=== PATIENT | male | born 1935 | race Caucasian/White ===

== ENCOUNTER 2018-10-01 16:11 | Inpatient (IN) ==
[2018-10-01] MEDS ORDERED: TAMIFLU PO ONE (16:39)
[2018-10-01] MEDS ORDERED: ROCEPHIN 1 GM in NS 50 ML IV ONE (16:39)
[2018-10-01] MEDS ORDERED: NS 1,000 ML IV ONE (16:39)
[2018-10-01] MEDS ORDERED: TYLENOL PO ONE (16:39)
[2018-10-01] MEDS ORDERED: ZITHROMAX 500 MG/NS 500 MG/250 ML IVPB IV ONE (16:39)
[2018-10-01] MEDS ORDERED: DUONEB (A & A) INH ONE (16:40)
[2018-10-01 17:10] LABS: BASO# 0.01 X1000 (0.0-0.2); BASO% 0.1 % (0.0-0.8); HEMATOCRIT 40.8 % (42.0-52.0); HEMOGLOBIN 13.2 g/dL (14.0-18.0); IMM GRAN# 0.02 X1000 (0.0-0.04); IMM GRAN% 0.2 % (0.0-0.5); LYMPH% 4.8 % (20.5-51.1); MCH 31.1 PG (27-31); MCHC 32.4 g/dL (33-37); MCV 96.2 FL (81-99); MONO# 0.84 X1000 (0.11-0.59); MONO% 8.1 % (1.7-9.3); MPV 9.9 FL (7.4-10.4); NEUT# 9.04 X1000 (1.4-6.5); NEUT% 86.8 % (42.2-75.2); PLT 111 X1000 (130-400); RBC 4.24 XMIL (4.7-6.1); RDW 12.3 % (11.5-14.5); WBC 10.41 X1000 (4.8-10.8)
[2018-10-01 17:12] LABS: ALLEN TEST YES; BE -2.1 mmoll (-3.0-3.0); BLOOD TYPE ARTERIAL; HCO3-(ACT) 23.2 mmoll (20.0-26.0); METHB 0.8 % (0.0-1.5); MODALITY CANNULA; O2(CT) 17.7 mL/dL (15.0-23.0); O2HB 94.1 % (95.0-99.0); PCO2(98.6) 29 mmHg (35-45); PO2(98.6) 70 mmHg (60-100); SAMPLE BLOOD; SAO2 96.3 % (95.0-100.0); THB 13.4 g/dL (11.5-17.4); pH(98.6) 7.46 (7.35-7.45)
[2018-10-01 17:13] LABS: INR 1.04; PROTIME 14.5 Seconds (11.0-16.0)
--- NOTE | 2018-10-01 17:22 | Diag Imaging Result Doc PS360 ---
CHEST-PORTABLE - 10/01/2018 INDICATION: flu, diff breathing COMPARISON: 09/14/2016 FINDINGS: There is faint left lower lobe infiltrates. Heart size and pulmonary vascularity is normal. No pneumothorax or pleural effusion. IMPRESSION: Left lower lobe infiltrate. Electronically signed by Eliel Martin 10/01/2018 5:20 PM
[2018-10-01 17:31] LABS: ALB/GLOB RATIO 1.4; ALBUMIN 4.2 g/dL (3.5-5.0); CALCIUM 9.1 mg/dL (8.8-10.2); CREATININE 1.2 mg/dL (0.7-1.2); MAGNESIUM 1.7 mg/dL (1.5-2.7); POTASSIUM 3.7 mmol/L (3.5-5.1); TOTAL BILIRUBIN 0.79 mg/dL (0.20-1.00); TOTAL PROTEIN 7.1 g/dL (6.3-8.3)
[2018-10-01] MEDS ORDERED: MORPHINE IV ONE (17:42)
[2018-10-01] MEDS ORDERED: ZOFRAN IV ONE (17:42)
--- NOTE | 2018-10-01 17:45 | PROVIDER DOCUMENTATION ---
This chart was entered by Tarsha Massey Scribe, acting as scribe for Jimbo Hogan MD. HPI-Respiratory General - General Chief Complaint: Shortness of Breath Stated Complaint: FEVER Time Seen by Provider: 10/01/18 16:53 Allergies/Adverse Reactions: Patient Allergies Allergy/AdvReac Type Severity Reaction Status Date / Time No Known Allergies Allergy Verified 10/18/14 08:52 Home Medications: Home Medication List Medication Instructions Recorded Confirmed Last Taken Type Hydroxychloroquine [Plaquenil] 200 mg PO DAILY 10/18/14 03/08/16 03/07/16 History Tramadol HCl 50 mg PO TID 06/02/15 03/08/16 07/30/15 History Omeprazole 20 mg PO QAM 07/31/15 03/08/16 03/07/16 History Gabapentin 300 mg PO TID 01/08/16 03/08/16 03/07/16 History Losartan [Cozaar] 50 mg PO DAILY #30 tablet 01/08/16 03/08/16 03/07/16 Rx Spironolact/Hydrochlorothiazid 1 tab PO DAILY 01/08/16 03/08/16 03/07/16 History [Spironolactone-Hctz 25-25 Tab] Escitalopram [Lexapro] 10 mg PO DAILY #30 tablet 03/08/16 Unknown Rx Methylprednisolone [Medrol Dosepak] 4 mg PO DIRECTED #1 package 09/14/16 Unknown Rx - History of Present Illness-Resp Nature of Presenting Problem: Patient is a 83 year old male who presents to the ED with shortness of breath. Patient states shortness of breath has been present for 1 week. Patient states sick contact to who had flu. Patient's states patient was diagnosed with flu prior to arrival at [facility]. Patient does not report nausea or vomiting. Quality of Pain: reports: tightness Severity in ED: reports: mild Onset/Duration: reports: 1 week ago Timing: reports: still present, getting worse Cough Quality/Degree: reports: no cough Current Respiratory Medication Therapy: Initiated see nurses note Modifying Factors: improves with: nothing Associated Symptoms: reports: shortness of breath Similar Symptoms Previously?: Yes Recently seen or treated by another doctor?: Yes Review of Systems - Adult - REVIEW OF SYSTEMS - ADULT Constitutional: reports: no symptoms reported Eyes: reports: no symptoms reported Ears, Nose, Mouth & Throat: reports: no symptoms reported Cardiovascular: reports: no symptoms reported Respiratory: reports: shortness of breath. denies: cough, wheezing Gastrointestinal: reports: no symptoms reported Genitourinary: reports: no symptoms reported Musculoskeletal: reports: no symptoms reported Integumentary: reports: no symptoms reported Neurological: reports: no symptoms reported Psychiatric: reports: no symptoms reported Endocrine: reports: no symptoms reported Hematologic/Lymphatic: reports: no symptoms reported Allergic/Immunologic: reports: no symptoms reported All Other Systems: Reviewed and Negative Past History - Adult - PAST MEDICAL HISTORY-ADULT Review of Records: reports: Nursing Assessment Review, Medications Reviewed, Social history reviewed & non-contributory. Major Childhood Illnesses: reports: denies history Cardiovascular: reports: HTN, hyperlipidemia, other (MVP) Respiratory: reports: denies history Gastrointestinal: reports: GERD Obstetrical/Gynecological: reports: denies history Genitourinary: reports: denies history Musculoskeletal: reports: chronic pain, intervertebral disc disease, orthopedic injury Neurological: reports: other (Saritha) Endocrine/Immune: reports: lupus Other Conditions: reports: denies history - PRIOR SURGERIES/PROCEDURES Surgical/Procedure History: reports: joint replacement (total knee), back/neck (back sx x3; neck sx x 1) - IMMUNIZATION STATUS Childhood Immunizations: See Nurse Assessment Flu Vaccine: See Nurse Assessment - FAMILY HISTORY Family History: reviewed, not pertinent - SOCIAL HISTORY Smoking: denies Substance Use: denies Living Situation: family Physical Exam-General - PHYSICAL EXAM-ADULT Initial Vital Signs Reviewed: Yes - CONSTITUTIONAL General Appearance: alert, no apparent distress - HEAD, EARS, NOSE, MOUTH & THROAT HENMT: hearing deficit - RESPIRATORY Respiratory: chest non-tender, rhonchi (bilateral), wheezing (bilateral) - CARDIOVASCULAR Cardiovascular: tachycardia - GASTROINTESTINAL (ABDOMEN) Abdominal Exam: normal bowel sounds, non tender, soft - MUSCULOSKELETAL Extremity: non-tender, normal inspection - SKIN Integumentary: normal color, normal turgor, warm/dry - NEUROLOGIC Neurologic: grossly normal - PSYCHIATRIC Psych/Mental Status: normal mood/affect, oriented x 3 Progress - PLAN OF CARE/RESULTS Progress/Plan/Lab Results: Vital Signs - 8 hr 10/01/18 16:45 10/01/18 17:11 Temperature 101 F H Pulse Rate 95 H 95 H Respiratory Rate 20 18 Blood Pressure 128/52 O2 Sat by Pulse Oximetry 92 L Laboratory Results - last 24 hr 10/01/18 10/01/18 10/01/18 16:35 16:35 16:35 WBC 10.41 RBC 4.24 L Hgb 13.2 L Hct 40.8 L MCV 96.2 MCH 31.1 H MCHC 32.4 L RDW Std Deviation 12.3 Plt Count 111 L MPV 9.9 Immature Gran % (Auto) 0.2 Neut % (Auto) 86.8 H Lymph % (Auto) 4.8 L Archuleta % (Auto) 8.1 Eos % (Auto) 0.0 Baso % (Auto) 0.1 Immature Gran # (Auto) 0.02 Neut # (Auto) 9.04 H Lymph # (Auto) 0.50 L Archuleta # (Auto) 0.84 H Eos # (Auto) 0.00 Baso # (Auto) 0.01 PT INR Specimen Type Sample Site pH pCO2 pO2 HCO3 Base Excess Oxyhemoglobin ABG O2 Sat (Calculated) ABG O2 Saturation ABG Carboxyhemoglobin ABG Methemoglobin Oumar Test A-a O2 Difference Total Hemoglobin Lactate Liter Flow Blood Gas Modality FiO2 % Sodium 133 L Potassium 3.7 Chloride 96 L Carbon Dioxide 20 L Anion Gap 17 BUN 22 Creatinine 1.2 Estimated GFR/1.73 m2 58 BUN/Creatinine Ratio 18 Glucose 137 H Calculated Osmolality 272 Calcium 9.1 Magnesium 1.7 Total Bilirubin 0.79 AST 20 ALT 13 Alkaline Phosphatase 98 Troponin T Total Protein 7.1 Albumin 4.2 Globulin 2.9 Albumin/Globulin Ratio 1.4 Plasma Lactate 1.3 10/01/18 10/01/18 10/01/18 16:35 16:35 17:01 WBC RBC Hgb Hct MCV MCH MCHC RDW Std Deviation Plt Count MPV Immature Gran % (Auto) Neut % (Auto) Lymph % (Auto) Archuleta % (Auto) Eos % (Auto) Baso % (Auto) Immature Gran # (Auto) Neut # (Auto) Lymph # (Auto) Archuleta # (Auto) Eos # (Auto) Baso # (Auto) PT 14.5 INR 1.04 Specimen Type ARTERIAL Sample Site R RADIAL pH 7.46 H pCO2 29 L pO2 70 HCO3 23.2 Base Excess -2.1 Oxyhemoglobin 94.1 L ABG O2 Sat (Calculated) 17.7 ABG O2 Saturation 96.3 ABG Carboxyhemoglobin 1.50 ABG Methemoglobin 0.8 Oumar Test YES A-a O2 Difference 93.0 Total Hemoglobin 13.4 Lactate 0.80 Liter Flow 2.0 Blood Gas Modality CANNULA FiO2 % 28.0 Sodium Potassium Chloride Carbon Dioxide Anion Gap BUN Creatinine Estimated GFR/1.73 m2 BUN/Creatinine Ratio Glucose Calculated Osmolality Calcium Magnesium Total Bilirubin AST ALT Alkaline Phosphatase Troponin T < 0.010 Total Protein Albumin Globulin Albumin/Globulin Ratio Plasma Lactate Orders Category Date Time Status Nursing- Obtain EKG once Care 10/01/18 16:38 Completed Saline Loc NOW Care 10/01/18 16:38 Active CHEST-PORTABLE [RAD] Stat Exams 10/01/18 16:39 Completed ABG [RESP] Routine Lab 10/01/18 17:01 Completed BLOOD CULTURE [BLDCUL] Stat Lab 10/01/18 17:05 Received CBC WITH ELECTRONIC DIFF [HEME] Stat Lab 10/01/18 16:35 Completed COMPREHENSIVE METABOLIC PANEL [CHEM] Stat Lab 10/01/18 16:35 Completed LACTATE, PLASMA [CHEM] Stat Lab 10/01/18 16:35 Completed MAGNESIUM [CHEM] Stat Lab 10/01/18 16:35 Completed PRO B-NATRIURETIC PEPTIDE Stat Lab 10/01/18 16:35 Received PROTIME WITH INR [COAG] Stat Lab 10/01/18 16:35 Completed SPUTUM CULTURE WITH GRAM STAIN [RM] Stat Lab 10/01/18 16:39 Uncollected TROPONIN T Stat Lab 10/01/18 16:35 Completed URINALYSIS W/POSS RFLX CULT [URINALYSIS] Stat Lab 10/01/18 16:39 Uncollected 0.9% Sodium Chloride Inj [Ns] 1,000 ml Med 10/01/18 16:39 Discontinued IV 999 mls/hr Acetaminophen [Tylenol] Med 10/01/18 16:39 Discontinued 1,000 mg PO NOW ONE Albuterol 2.5MG/Ipratrop 0.5MG [Duoneb (A & A)] Med 10/01/18 16:40 Discontinued 3 ml INH NOW ONE Azithromycin 500 mg/Ns [Zithromax 500 mg/Ns] Med 10/01/18 16:39 Discontinued 500 mg in 250 ml IV NOW CefTRIAXONE [Rocephin] 1 gm Med 10/01/18 16:39 Discontinued 0.9% Sodium Chloride Inj [Ns] 50 ml IV NOW Morphine Med 10/01/18 17:42 Once 4 mg IV NOW ONE Ondansetron [Zofran] Med 10/01/18 17:42 Once 4 mg IV NOW ONE Oseltamivir [Tamiflu] Med 10/01/18 16:39 Discontinued 75 mg PO NOW ONE Aerosol Treatments Routine Oth 10/01/18 16:40 Completed Aerosol Treatments Stat Oth 10/01/18 16:40 Completed EKG [EKG] Stat Ther 10/01/18 16:38 Ordered Result Diagrams: 10/01/18 16:35 10/01/18 16:35 - REASSESSMENT Reassessment #2 Time Reassessed: 17:42 Status: improving (patient meets criteria for sepsis, but not severe sepsis. He has CAP and Influenza A. Given IV rocephin/zithromax, po Tamiflu and IV morphine/zofran) - EKG 1 Time of EKG reading by physician:: 16:23 EKG Read and Signed by:: Jimbo Hogan EKG Interpretation (*Must complete 3 of following elements*): Abnormal Rate: 92 Rhythm: sinus rhythm with premature atrial complexes Brainard: left QRS: LVH (with QRS widening and repolarization abnormality.) Comments: cannot rule out septal infarct, age undetermined - XRAY 1 XRAY Study: Chest Impression: See EMR Report (CHEST-PORTABLE - 10/01/2018 INDICATION: flu, diff br eathing COMPARISON: 09/14/2016 FINDINGS: There is faint left lower lobe infiltrates. Heart size and pulmonary vascularity is normal. No pneumothorax or pleural effusion. IMPRESSION: Left lower lobe infiltrate. Electronically signed by Eliel Martin 10/01/2018 5:20 PM 10/01/18 1720 Interpreting Physician: Eliel Martin MD Dictated Date/Time: 10/01/18 1720 cc: Jimbo Hogan MD; Nelia Sandhu MD) - CONSULTS/PCP/HOSPITALIST Notification #1 *Consult/PCP/Hospitalist*: ZEYAD Man Time Discussed: 17:45 (Admit to [facility]) Consult Disposition: Will see in ED Departure - Departure Date of Disposition Decision: 10/01/18 Time of Disposition Decision: 17:43 DIAGNOSIS: Sepsis without acute organ dysfunction Left lower lobe pneumonia Qualifiers: Pneumonia type: due to influenza A virus Qualified Code(s): J11.00 - Influenza due to unidentified influenza virus with unspecified type of pneumonia Disposition: ADMITTED INPATIENT 09 Certified Medical Emergency: Emergent Condition: Fair Referrals and Follow-Ups: Nelia Sandhu MD [Primary Care Provider] - - Critical Care Note This patient required my direct & personal management of CC.: No Attestation - Physician/ YUN Attestation Patient care was provided by Advanced Practice Provider:: No The physician spent face to face time with patient:: Yes Advanced Practice Provider documentation review:: Supervising physician onsite and consulted in the evaluation and care of this patient. The physician did have a face to face encounter with the patient. This chart was documented by the indicated scribe, (Tarsha Massey Scribe) and accurately reflects the services I performed and decisions made by , Jimbo Hogan MD, as attested by the provider's signature.
[2018-10-01] MEDS ORDERED: SODIUM CHLORIDE 0.9% INJ SCH (19:00)
[2018-10-01] MEDS ORDERED: VANCOMYCIN IV PER PHARMACY MISC SCH (19:00)
[2018-10-01] MEDS ORDERED: XOPENEX NEB INH PRN (19:01)
[2018-10-01] MEDS: PROTONIX IV SCH (19:35)
[2018-10-01] MEDS: MAXIPIME 2 GM in NS 100 ML IV SCH (19:35)
[2018-10-01 20:04] LABS: ACETAMINOPHEN 14.2 ug/mL (10-30); SALICYLATES < 3.00 mg/dL (3-10)
[2018-10-01 20:13] LABS: ACETONE SERUM SMALL (NEGATIVE)
[2018-10-01] MEDS ORDERED: VANCOMYCIN 2 GM in NS 500 ML IV ONE (21:00)
[2018-10-01] MEDS: TAMIFLU PO SCH (21:00)
--- NOTE | 2018-10-01 21:00 | Diag Imaging Result Doc PS360 ---
CT HEAD W/O CONTRAST - 10/01/2018 INDICATION: encephalopathy, headache COMPARISON: 07/31/2015 FINDINGS: The ventricles and sulci are normal in size and contour. There is some mild periventricular white matter chronic microvascular disease. No intracranial mass or hemorrhage. The skull is intact. The sinuses, mastoids, and middle ears are clear. IMPRESSION: No acute disease. This exam was performed using automated exposure control, adjustment of mA or kV according to patient size, and/or use of iterative reconstruction technique Electronically signed by Eliel Martin 10/01/2018 8:57 PM
--- NOTE | 2018-10-01 21:10 | Diag Imaging Result Doc PS360 ---
CT THORAX W/O CONTRAST - 10/01/2018 INDICATION: Rule out consolidation left lower lobe COMPARISON: Chest x-ray from earlier FINDINGS: There is significant infiltrate in the left lower lobe along with bronchial wall thickening. This indicates bronchopneumonia. There is some dependent atelectasis in the right lower lobe. Heart and great vessels are normal. No adenopathy. There is probably left renal atrophy. Otherwise upper abdominal images are unremarkable. There are moderate degenerative changes of the spine. No acute or suspicious bony lesion. IMPRESSION: Significant bronchopneumonia in the left lower lobe. This exam was performed using automated exposure control, adjustment of mA or kV according to patient size, and/or use of iterative reconstruction technique Electronically signed by Eliel Martin 10/01/2018 9:08 PM
--- NOTE | 2018-10-01 21:13 | HISTORY AND PHYSICAL ---
PRIMARY CARE PHYSICIAN: Dr. Jorge Bowles. CHIEF COMPLAINT: Weakness, fever, shortness of breath. HISTORY OF PRESENT ILLNESS: Mr. Jeffers is an 83-year-old male with a history of hypertension, lupus, and hyperlipidemia. He presents with 3 days of progressive weakness, fever, chills, malaise, and progressive cough. His was recently in the hospital here and is being treated for the flu. He went to a walk-in clinic today and was tested for the flu and found positive for flu A, and chest x-ray was suggestive of pneumonia, so it was suggested he come to the ER. Here in the ER he had multiple labs and diagnostics done. Interestingly, he has no white count, but he is acidotic with mild hyponatremia, and his chest x-ray is consistent with pneumonia. He does have a fever and is requiring O2, so we will be putting him in the CICU with a low threshold to transfer him to the ICU. PAST MEDICAL HISTORY: 1. Hypertension. 2. Hyperlipidemia. 3. Lupus. 4. Chronic back pain. 5. Question of congestive heart failure. Last echocardiogram done in 2016 shows an EF of 50% with mild concentric LVH. PAST SURGICAL HISTORY: 1. Total knee arthroplasty. 2. Lumbar spine surgery x2. 3. C-spine surgery x1. SOCIAL HISTORY: He quit smoking some time ago. No current tobacco, alcohol or drug use. His is currently at the bedside. She was recently in the hospital and is currently being treated for the flu. FAMILY HISTORY: Noncontributory. REVIEW OF SYSTEMS: A 14-point review of systems was obtained and found to be negative with the exception of the HPI. HOME MEDICATIONS: Yet to be compiled. PHYSICAL EXAMINATION: VITAL SIGNS: Blood pressure is 128/52, heart rate 95, respiratory rate 18, O2 saturation 92% on nasal cannula. Temperature is 101. GENERAL: Ivhvqnkvoyf-fcl-dglnynact 83-year-old male lying in the hospital bed in mild respiratory distress. NEUROLOGIC: He is somewhat disoriented. He has a difficult time answering orientation questions correctly. He does follow commands without any overt focal deficits. HEENT: His head is atraumatic and normocephalic. His pupils are equal, round, and reactive to light. His oral mucosa is dry. NECK: Trachea is midline. There is no JVD. CHEST: Coarse rhonchi bilaterally. CV: Tachycardic. S1 and S2 noted. No appreciable murmurs. GI: Soft, nondistended, nontender. Bowel sounds are hypoactive. EXTREMITIES: Trace edema. Pulses 1+ bilaterally. DIAGNOSTIC DATA: Chest x-ray shows left lower lobe infiltrate, otherwise normal. LABORATORY DATA: WBCs 10.41, hemoglobin 13.2, hematocrit 40.8, platelet count 111. INR 1.04. ABG on nasal cannula shows a pH of 7.46, CO2 of 29, O2 of 70, bicarbonate of 23.2. Oxyhemoglobin 94.1. Sodium 133, potassium 3.7, chloride 96. CO2 is 20, anion gap 17, BUN 22, creatinine 1.2, glucose 137. Calcium 9.1. LFTs normal. Troponin negative. ProBNP 3564. Albumin 4.2. ASSESSMENT/PLAN: 1. Acute hypoxic respiratory failure: Secondary to influenza A and pneumonia. We will increase oxygen as needed. Continue ABGs and serial chest x-rays. Would consider increasing his oxygen to Ventimask. 2. Influenza A with superimposed community-acquired pneumonia: We have increased his antibiotics to cefepime and vancomycin, as his was recently in the hospital, and this was presumably the nidus of infection. Given her recent admission, will cover him for methicillin-resistant Staphylococcus aureus as well. Continue breathing treatments, aggressive pulmonary toilet, daily chest x-rays, and FiO2 as needed. We have also started Tamiflu and will keep him on respiratory isolation. 3. Elevated anion gap, metabolic acidosis: His lactic acid is normal. His blood sugar is 137. Will check acetone, acetaminophen and salicylate levels, but more than likely he is dehydrated and hypoxic, which is resulting in acidosis. 4. Mild hyponatremia: Will continue IV fluids and order urine studies. We are awaiting a urinalysis as well. 5. Questionable history of congestive heart failure. Last ejection fraction in 2016 was 50% with mild mitral regurgitation, mild tricuspid regurgitation, mild tricuspid insufficiency, and borderline concentric left ventricular function hypertrophy. He does not appear in overt heart failure at this time. He does have an elevated proBNP of 3500, so we will check an echocardiogram when he is a bit more stable and trend his cardiac enzymes to make sure an EKG is on the chart. He denies any chest pain at this time. Follow strict inputs and outputs and daily weights. 6. Hypertension, currently stable. Will hold off on any antihypertensives at this time, as he has borderline sepsis, and we want to maintain adequate perfusion. 7. Metabolic encephalopathy: Likely secondary to his underlying infectious processes as well as respiratory failure, but will go ahead and check a head CT, as he is complaining of headache and is encephalopathic. 8. Deep venous thrombosis prophylaxis with sequential compression devices. 9. Further recommendations to follow. Dictated by ZEYAD Lorenzana for Vitaliy Godwin MD cc: ZEYAD Lorenzana MD I agree with most of the components of history, physical, assessment and plan. A separate addendum has been dictated. ROBERTA
--- NOTE | 2018-10-01 22:27 | HISTORY AND PHYSICAL ---
ADDENDUM: This is an addendum to the history and physical dictated by the nurse practitioner. I agree with most components of history, physical, assessment and plan. In brief, Mr. Jeffers is an 83-year-old man with history of hypertension; hyperlipidemia; systemic lupus erythematosus, in remission; chronic pain; GERD. He comes in with complaints of chest pain, difficulty breathing with cough, vomiting and diarrhea of about 1 week duration. Most of his symptoms got worse in the last 48 hours, for which he visited urgent care clinic and was diagnosed with influenza type A according to ER reports, and so he was sent to the emergency room. SUBJECTIVE: At the time of my evaluation, the patient is very drowsy and he wants to sleep; however, he is easily arousable. Most of the history was obtained from the at bedside. The patient does not have any known history of COPD, heart failure, coronary artery disease or peripheral artery disease. PHYSICAL EXAMINATION: VITAL SIGNS: Currently temperature is 101 degrees, pulse of 84 per minute, blood pressure 120/59, saturating 92%. GENERAL: He appears in mild distress because of shortness of breath. HEENT: Oral cavity is dry. LUNGS: Air entry bilaterally equal with decreased air entry in left inframammary region, with some inspiratory crackles. No wheeze or rhonchi. ABDOMEN: Distended, soft, nontender. Active bowel sounds. CARDIOVASCULAR: S1, S2 normal. No murmur, rub or gallop. EXTREMITIES: No lower extremity edema. LABORATORY DATA: Labs suggestive of no leukocytosis, normocytic anemia, thrombocytopenia. Normal coagulation profile. ABG in acceptable range. Hyponatremia, hypochloremia, elevated anion gap metabolic acidosis, what appears to be likely chronic kidney disease or acute kidney injury on chronic kidney disease stage 3. DIAGNOSTIC DATA: Chest x-ray had suggested left lower lobe infiltrate. A CT scan thorax and CT scan head is awaited. ASSESSMENT: 1. Acute hypoxic respiratory failure. 2. Influenza type A. 3. Sepsis due to suspected influenza type A versus left lower lobe bacterial pneumonia. 4. Acute kidney injury versus chronic kidney disease stage 3. 5. Thrombocytopenia. 6. Acute encephalopathy in the form of mild confusion in the setting of sepsis. PLAN: Continue the patient on intravenous antibiotics, intravenous fluids, oseltamivir, albuterol/ipratropium nebulization. I will add back his home medications as tolerated tomorrow. I will also follow up with CT thorax to rule out any acute cerebrovascular events considering his acute encephalopathy, though his exam appears nonfocal. I will admit the patient to [facility] for acute hypoxic respiratory failure and sepsis. His code status is Full Code, as per discussion with the . Plan of care was discussed with the patient and his at bedside. All of their questions have been answered. cc: Vitaliy Godwin MD
[2018-10-01] MEDS: XOPENEX NEB INH SCH (23:30)
[2018-10-02] MEDS: MIRAPEX PO SCH ×2 (00:21→21:40)
[2018-10-02] MEDS: XOPENEX NEB INH SCH ×7 (02:26→23:40)
[2018-10-02 03:53] LABS: URINE SOURCE CLEAN CATCH
[2018-10-02 03:56] LABS: BILIRUBIN URINE NEGATIVE (NEGATIVE); BLOOD URINE NEGATIVE (NEGATIVE); COLOR YELLOW; GLUCOSE URINE NEGATIVE (NEGATIVE); KETONE URINE TRACE mg/dL (NEGATIVE); LEUKOCYTES URINE NEGATIVE (NEGATIVE); NITRITE URINE NEGATIVE (NEGATIVE); PH URINE 5.5; PROTEIN URINE 70 mg/dL (NEGATIVE); SP GRAVITY URINE 1.027; TURBIDITY URINE CLEAR (CLEAR); UROBILINOGEN URINE NORMAL (NORMAL)
[2018-10-02 03:57] LABS: UR EPITHELIAL CELLS <10 /HPF (<10); URINE BACTERIA NEGATIVE /HPF; URINE RBC <10 /HPF (<10); URINE WBC <10 /HPF (<10)
[2018-10-02] MEDS: PRILOSEC PO SCH (06:41)
[2018-10-02] MEDS ORDERED: ZOFRAN IV PRN ×2 (06:55→09:33)
[2018-10-02] MEDS ORDERED: TYLENOL PO PRN (07:08)
[2018-10-02 07:09] LABS: BASO# 0.01 X1000 (0.0-0.2); BASO% 0.1 % (0.0-0.8); HEMATOCRIT 36.8 % (42.0-52.0); HEMOGLOBIN 11.7 g/dL (14.0-18.0); IMM GRAN# 0.02 X1000 (0.0-0.04); IMM GRAN% 0.2 % (0.0-0.5); LYMPH# 1.45 X1000 (1.2-3.4); LYMPH% 10.9 % (20.5-51.1); MCHC 31.8 g/dL (33-37); MCV 97.4 FL (81-99); MONO# 1.16 X1000 (0.11-0.59); MONO% 8.7 % (1.7-9.3); MPV 9.7 FL (7.4-10.4); NEUT# 10.62 X1000 (1.4-6.5); NEUT% 80.1 % (42.2-75.2); PLT 97 X1000 (130-400); RBC 3.78 XMIL (4.7-6.1); RDW 12.6 % (11.5-14.5); WBC 13.26 X1000 (4.8-10.8)
[2018-10-02 07:28] LABS: CALCIUM 8.4 mg/dL (8.8-10.2); CREATININE 1.4 mg/dL (0.7-1.2); MAGNESIUM 1.7 mg/dL (1.5-2.7); POTASSIUM 3.8 mmol/L (3.5-5.1)
[2018-10-02] MEDS: PLAQUENIL PO SCH (09:30)
[2018-10-02] MEDS: MAXIPIME 2 GM in NS 100 ML IV SCH ×2 (09:30→21:40)
[2018-10-02] MEDS: NEURONTIN PO SCH ×3 (09:30→21:40)
[2018-10-02] MEDS: TAMIFLU PO SCH ×2 (09:30→21:40)
--- NOTE | 2018-10-02 11:08 | PROGRESS NOTE ---
DATE: 10/02/2018 INTERVAL HISTORY: Mr. Jeffers was admitted for flu and left lower lobe bronchopneumonia, which was detected on CAT scan. He had an episode of vomiting in the morning time, and he is feeling sick in his stomach. He denies any chest pain. He is feeling a little short of breath. He has some body aches. He has some headache. We discussed he is also making sputum. We discussed about pneumonia, influenza, and waiting for final blood and sputum culture. I answered all of his questions. VITALS: Current temperature of 99.5 degrees, pulse of 77 per minute, respiratory rate of 26 per minute, blood pressure 134/42, saturating 97% on 2 L nasal cannula.General: On physical examination, he appears in mild distress. We discussed about his condition. HEENT: Oral cavity is moist. Lungs: Air entry decreased in left infrascapular region with inspiratory crackles. No wheeze or rhonchi. Otherwise, good air entry bilaterally equal. Cardiovascular: S1, S2 normal. Not tachycardic. No murmur, rub, or gallop. Abdomen: Distended with gas, mild generalized tenderness especially in epigastric region. Active bowel sounds. Extremities: No lower extremity edema. Neurologic: Alert and oriented x3. Nonfocal. He is able to get up from bed and sit without any help. LABS: Suggestive of leukocytosis, normocytic anemia, thrombocytopenia, improving hyponatremia and hypochloremia, reducing anion gap with persistent acidosis, elevated creatinine suggestive of acute kidney injury versus his history of chronic kidney disease stage III. MICROBIOLOGY: Sputum culture, blood cultures are in lab. IMAGING: No new imaging data. ASSESSMENT AND PLAN: 1. Acute hypoxic respiratory failure because of influenza leading to viral pneumonia with or without superimposed bacterial pneumonia affecting left lower lobe. Continue oxygenation to maintain saturation more than 94%. 2. Influenza type A as was diagnosed at outpatient urgent care clinic and emergency department documentation. Continue patient on oseltamivir. 3. Sepsis due to suspected influenza type A versus left lower lobe bacterial pneumonia. Continue patient on intravenous cefepime as he has history of systemic lupus erythematosus and was on hydroxychloroquine to have a broader coverage of gram-negative bacilli. I will stop vancomycin considering his chronic kidney disease and acute kidney injury and chronic kidney disease. I will add methicillin-resistant Staphylococcus aureus coverage in the future if his condition does not improve or sputum grows methicillin-resistant Staphylococcus aureus. 4. Elevated anion gap with low bicarbonate likely in the setting of a degree off of baseline chronic kidney disease. On top of that, his hypochloremia could have contributed to it with a degree of volume depletion. Now, anion gap has closed. He continues to have low bicarbonate, which I will monitor at the moment. No need of bicarbonate supplement. 5. Thrombocytopenia in the setting of viral pneumonia. Continue to monitor. No need of transfusion. 6. Acute encephalopathy in the setting of sepsis. CT scan head was unremarkable. His encephalopathy has now resolved. 7. Others: History of congestive heart failure in 2016 with ejection fraction of 50% and elevated proBNP on admission, history of essential hypertension, aware. I will do further diagnostic as needed. 8. Disposition: Patient remains inside the hospital. Plan of care was discussed with him and his son at bedside. All of their questions have been answered. cc: Vitaliy Godwin MD
[2018-10-02] MEDS: ZYVOX 600 MG/D5W 600 MG/300 ML IVPB IV SCH ×2 (12:57→22:29)
[2018-10-02] MEDS: LOVENOX SUBQ SCH (14:59)
[2018-10-02] MEDS: PROTONIX IV SCH (18:52)
[2018-10-03] MEDS ORDERED: VANCOMYCIN 1,600 MG in NS 250 ML IV SCH (03:00)
[2018-10-03] MEDS: XOPENEX NEB INH SCH ×5 (03:40→19:10)
[2018-10-03] MEDS: PRILOSEC PO SCH (06:28)
[2018-10-03 08:02] LABS: BASO# 0.01 X1000 (0.0-0.2); BASO% 0.2 % (0.0-0.8); EOS# 0.08 X1000 (0.0-0.7); EOS% 1.3 % (0.0-10.0); HEMATOCRIT 34.4 % (42.0-52.0); LYMPH# 0.99 X1000 (1.2-3.4); LYMPH% 16.2 % (20.5-51.1); MCV 96.9 FL (81-99); MONO# 0.62 X1000 (0.11-0.59); MONO% 10.1 % (1.7-9.3); MPV 9.6 FL (7.4-10.4); NEUT# 4.41 X1000 (1.4-6.5); NEUT% 72.2 % (42.2-75.2); PLT 98 X1000 (130-400); RBC 3.55 XMIL (4.7-6.1); RDW 12.5 % (11.5-14.5); WBC 6.11 X1000 (4.8-10.8)
[2018-10-03 08:23] LABS: CALCIUM 8.4 mg/dL (8.8-10.2); CREATININE 1.5 mg/dL (0.7-1.2); POTASSIUM 3.9 mmol/L (3.5-5.1)
[2018-10-03] MEDS: ZYVOX 600 MG/D5W 600 MG/300 ML IVPB IV SCH (09:04)
[2018-10-03] MEDS: MAXIPIME 2 GM in NS 100 ML IV SCH ×2 (09:04→21:41)
[2018-10-03] MEDS: NEURONTIN PO SCH ×3 (09:05→21:42)
[2018-10-03] MEDS: TAMIFLU PO SCH ×2 (09:05→21:42)
[2018-10-03] MEDS: PLAQUENIL PO SCH (09:05)
[2018-10-03] MEDS ORDERED: LMX 5 CREAM TOP PRN (15:30)
--- NOTE | 2018-10-03 16:07 | PROGRESS NOTE ---
DATE: 10/03/2018 INTERVAL HISTORY: No events overnight. Patient did not have any more vomiting episodes. He was able to keep his heart-healthy diet down. The patient complains of a persistent cough with mucus expectoration. He also complains of right lower quadrant abdominal pain which is intermittent, sometimes positional as well. OBJECTIVE: Vital Signs: Currently temperature of 98 degrees, pulse of 65, respiratory rate 18, blood pressure 140/64, saturating 97% on room air. General: He does not appear in any acute distress, except intermittent distress because of right lower quadrant pain. HEENT: Oral cavity is moist. Lungs: Air entry bilaterally equal. No wheeze, rhonchi, or crackles. He has occasional cough. Cardiovascular: S1, S2 normal. Not tachycardic. No murmur, rub, or gallop. Abdomen: Distended with gas. Right lower quadrant tenderness intermittently without any guarding or rigidity. Active bowel sounds. Extremities: Mild lower extremity edema bilaterally, more on the left than on the right. Neurologic: He is alert, oriented x3. He is able to get up from the bathroom, go to the bathroom using nasal cannula oxygen. DIAGNOSTIC STUDIES: Suggestive of resolution of leukocytosis, stable hemoglobin, hematocrit, and platelet count which is 98,000, and mild thrombocytopenia. Normal electrolytes except acute kidney injury on what appears chronic kidney disease stage 3. His urine Legionella and streptococcal antigen are in the lab. Sputum culture has not resulted final yet. One of the blood cultures was growing coagulase-negative Staphylococcus. ASSESSMENT AND PLAN: 1. Acute hypoxic respiratory failure because of influenza type A with superimposed suspected bacterial pneumonia affecting left lower lobe. Continue oxygenation to maintain saturation more than 94%. We will try to wean down oxygen as tolerated. 2. Influenza type A, diagnosed at outpatient urgent care clinic as per emergency room documentation. Continue oseltamivir use. 3. Sepsis due to suspected influenza type A versus left lower lobe bacterial pneumonia. Follow up urine streptococcal and Legionella antigen. Continue intravenous cefepime. Only 1 of the 2 blood cultures has coagulase-negative Staphylococcus which is likely contaminant. Follow up with final sputum culture results. 4. Elevated anion gap with low bicarbonate in the setting of baseline chronic kidney disease and hypochloremia on admission, now resolved. 5. Thrombocytopenia in setting of influenza type A. No need of transfusion. 6. Acute encephalopathy on presentation because of sepsis, now resolved. CT scan head was unremarkable. 7. Persistent right lower quadrant pain. His pain is intermittent, colicky. I will get ultrasound to rule out any nephrolithiasis or any other abdominal pathology contributing to it considering he also has acute kidney injury. DISPOSITION: Patient remains inside the hospital. Plan of care was discussed with him. All of his questions have been answered. If his sputum culture remains negative, I am anticipating discharge in the next 24 to 48 hours. cc: Vitaliy Godwin MD
[2018-10-03] MEDS: LOVENOX SUBQ SCH (17:37)
[2018-10-03] MEDS: PROTONIX IV SCH ×2 (19:32→21:42)
[2018-10-03] MEDS: MIRAPEX PO SCH (21:41)
[2018-10-04] MEDS: XOPENEX NEB INH SCH ×5 (02:41→15:20)
[2018-10-04] MEDS: PRILOSEC PO SCH (04:42)
--- NOTE | 2018-10-04 08:12 | Diag Imaging Result Doc PS360 ---
EXAM: US ABDOMEN-COMPLETE INDICATION: Persistent intermittent right lower quadrant pain. COMPARISON: None. FINDINGS: The gallbladder appears normal with no stones, wall thickening, or pericholecystic fluid. The common bile duct is normal in diameter. Sonographic Cardozo's sign was reported to be negative. The liver is grossly unremarkable. Portal venous flow is hepatopetal. The pancreas is obscured by bowel gas. The IVC is obscured. The aorta is unremarkable. The spleen is unremarkable. The left kidney is partially obscured. The visualized left kidney and the right kidney are unremarkable. IMPRESSION: Somewhat limited study due to bowel gas and body habitus. Essentially unremarkable, otherwise. Electronically signed by Aditya Whiteside 10/04/2018 8:10 AM
--- NOTE | 2018-10-04 08:58 | EKG Report ---
Test Performed on : 10/01/2018 4:23:28 PM Test Reason : sob Blood Pressure : / mmHG Vent. Rate : 092 BPM Atrial Rate : 092 BPM P-R Int : 200 ms QRS Dur : 120 ms QT Int : 362 ms P-R-T Axes : 058 -53 061 degrees QTc Int : 447 ms Sinus rhythm. with premature atrial complexes. Left axis deviation Left ventricular hypertrophy with QRS widening and repolarization abnormality Cannot rule out Septal infarct (cited on or before 02-JUN-2015) Abnormal ECG When compared with ECG of 08-JAN-2016 23:00, premature atrial complexes. are now present Vent. rate has increased BY 30 BPM Unconfirmed Result
[2018-10-04] MEDS: MAXIPIME 2 GM in NS 100 ML IV SCH ×2 (10:29→21:37)
[2018-10-04] MEDS: NEURONTIN PO SCH ×3 (10:30→21:28)
[2018-10-04] MEDS: TAMIFLU PO SCH ×2 (10:30→21:28)
[2018-10-04] MEDS: PLAQUENIL PO SCH (10:30)
[2018-10-04 10:35] LABS: BASO# 0.01 X1000 (0.0-0.2); BASO% 0.2 % (0.0-0.8); EOS# 0.11 X1000 (0.0-0.7); EOS% 2.2 % (0.0-10.0); HEMATOCRIT 35.3 % (42.0-52.0); HEMOGLOBIN 11.2 g/dL (14.0-18.0); IMM GRAN# 0.03 X1000 (0.0-0.04); IMM GRAN% 0.6 % (0.0-0.5); LYMPH# 0.91 X1000 (1.2-3.4); LYMPH% 18.2 % (20.5-51.1); MCH 30.8 PG (27-31); MCHC 31.7 g/dL (33-37); MONO# 0.56 X1000 (0.11-0.59); MONO% 11.2 % (1.7-9.3); MPV 9.2 FL (7.4-10.4); NEUT# 3.38 X1000 (1.4-6.5); NEUT% 67.6 % (42.2-75.2); PLT 114 X1000 (130-400); RBC 3.64 XMIL (4.7-6.1); RDW 12.2 % (11.5-14.5)
[2018-10-04 10:57] LABS: CALCIUM 8.8 mg/dL (8.8-10.2); CREATININE 1.4 mg/dL (0.7-1.2); POTASSIUM 4.4 mmol/L (3.5-5.1)
[2018-10-04] MEDS: LOVENOX SUBQ SCH (14:22)
--- NOTE | 2018-10-04 20:49 | PROGRESS NOTE ---
DATE: 10/04/2018 INTERVAL HISTORY: No acute overnight events. SUBJECTIVE: I discussed with him about ultrasound findings and answered all of his questions. The patient continues to ambulate well. I discussed with him about still awaiting urine streptococcal and Legionella antigen results. His abdominal pain continues to have looks like muscle spasm. OBJECTIVE: Vital signs: Temperature 98.1 degrees, pulse 72, respiratory rate 18, blood pressure 147/53, saturating 96% on room air. General: Does not appear in any acute distress. HEENT: Oral cavity is moist. Lungs: Air entry bilaterally equal with left infrascapular inspiratory crackles. No wheeze or rhonchi. Cardiovascular: S1, S2 normal. Not tachycardic. No murmur, rub, or gallop. Abdomen: Distended with gas. Mild generalized tenderness especially in the right lower quadrant. Active bowel sounds. Extremities: No lower extremity edema. Neurologic: He is alert and oriented x3. LABS: Suggestive of normocytic anemia and normal electrolytes. Blood culture has not shown any growth to date. Urine Legionella and streptococcal antigen are pending. ASSESSMENT AND PLAN: 1. Acute hypoxic respiratory failure because of influenza leading to viral pneumonia with suspected superimposed bacterial pneumonia affecting left lower lobe. Continue oxygenation to maintain saturation more than 94%. 2. Influenza type A. Continue patient on oseltamivir to complete total of 5 days treatment. 3. Sepsis due to suspected influenza type A versus left lower lobe bacterial pneumonia. Continue patient on intravenous cefepime. Follow up with urine streptococcal antigen and change antibiotics to p.o. at the time of discharge. 4. Thrombocytopenia in the setting of viral pneumonia. Continue to monitor. Currently, it is in acceptable range. 5. Elevated anion gap with low bicarbonate in the setting of baseline chronic kidney disease. On top of that, presence of hypochloremia due to volume depletion. Anion gap has closed. He continues to have low bicarbonate, which I will just monitor; however, his bicarbonate today had become normalized to 25. 6. Acute encephalopathy in the setting of sepsis at the time of presentation, resolved. CT scan was unremarkable. 7. Others: History of congestive heart failure in 2016 with ejection fraction of 50% and elevated proBNP on admission, history of essential hypertension, aware. DISPOSITION: If the patient's urine antigen comes back negative, my plan is to change antibiotics to p.o. and discharge him home tomorrow. Plan of care discussed with him. All of his questions have been answered. cc: Vitaliy Godwin MD
[2018-10-04] MEDS: MIRAPEX PO SCH (21:28)
[2018-10-04] MEDS: PROTONIX IV SCH (21:28)
[2018-10-05] MEDS: XOPENEX NEB INH SCH ×4 (06:36→11:43)
[2018-10-05 08:34] VITALS: BP 149/59
[2018-10-05] MEDS: TAMIFLU PO SCH (10:33)
[2018-10-05] MEDS: MAXIPIME 2 GM in NS 100 ML IV SCH (10:33)
[2018-10-05] MEDS: PLAQUENIL PO SCH (10:33)
[2018-10-05] MEDS: NEURONTIN PO SCH (10:33)
--- NOTE | 2018-10-05 12:30 | DISCHARGE SUMMARY ---
ADMISSION DATE: 10/01/2018 DISCHARGE DATE: 10/05/2018 DISCHARGE DIAGNOSES: 1. Acute hypoxic respiratory failure. 2. Influenza type A. 3. Sepsis due to suspected left lower lobe pneumonia. 4. Thrombocytopenia in the setting of influenza type A. 5. Elevated anion gap with low bicarbonate. 6. Chronic kidney disease stage III. 7. Acute encephalopathy in the setting of sepsis. 8. History of congestive heart failure. OTHER DIAGNOSES: 1. History of congestive heart failure with ejection fraction of 50%. 2. History of essential hypertension. 3. History of restless leg syndrome. 4. History of chronic pain. 5. History of systemic lupus erythematosus. DISCHARGE MEDICATIONS: 1. Pramipexole 1 mg p.o. at bedtime. 2. Baclofen 1 tablet p.o. t.i.d. 3. Gabapentin 300 mg p.o. t.i.d. 4. Omeprazole 40 mg in the morning time. 5. Hydroxychloroquine 200 mg daily. 6. Metoprolol succinate 100 mg one tablet daily. 7. Tramadol 50 mg b.i.d. 8. Albuterol sulfate 8.5 g one inhaler q. 6 hours p.r.n. 9. Levofloxacin 750 mg p.o. daily, 3 tablets have been prescribed. 10. Oseltamivir 75 mg p.o. b.i.d., 4 capsules have been prescribed. CONSULTATIONS DURING HOSPITALIZATION: None. IMAGING DURING HOSPITALIZATION: Chest x-ray on admission had detected left lower lobe infiltrate. Head CT on admission did not have any acute disease, except periventricular mild white matter chronic microvascular ischemic changes. Chest CT had detected significant bronchopneumonia in the left lower lobe. Abdomen ultrasound performed for persistent intermittent right lower quadrant pain was limited because of bowel gas and body habitus, but did not detect any nephrolithiasis. VITAL SIGNS: At the time of discharge, temperature 98.9 degrees, pulse 75, respiratory rate 18, blood pressure 149/59, saturating 94% on room air. PHYSICAL EXAMINATION: General: He did not appear in any acute distress. HEENT: His oral cavity was moist. Lungs: Air entry bilaterally equal without wheeze, rhonchi, or crackles. He did have thick chest wall and previous smoking history, and breath sounds were diminished in general, Heart: S1, S2 normal without any tachycardia, murmur, rub, or gallop. Abdomen: Abdomen was distended with gas, but it was soft without any tenderness or hepatosplenomegaly. Extremities: He did not have new lower extremity edema. Neurologic: He was alert oriented x3. SIGNIFICANT LABS: During hospital admission, his WBC count at discharge was 5, hemoglobin 11.2, platelet count of 114. His electrolytes were normal, except chloride of 109 and creatinine of 1.4 which was close to his baseline. MICROBIOLOGY: One of the 2 blood cultures was growing coagulase-negative Staphylococcus, but it was thought to be contaminant considering it was only 1 blood culture, Sputum culture did not have any pathologic growth of bacteria, except normal yuval. HOSPITAL COURSE SUMMARY: Mr. Pickett is an 83-year old man, who presented with complaints of weakness, fever, and shortness of breath of about 3 days duration which were progressive. He also had a complying subjective feeling of fevers and chills. His was recently in the hospital because of influenza and was discharged. He went into a [facility] and was tested positive for influenza type A, and so was sent to emergency room. At the time of emergency room, he was found to be hypoxic, requiring oxygen through nasal cannula, and also he had tachycardia with heart rate more than 90. He was in significant respiratory distress. He was admitted for need for treatment for influenza type A, and left lower lobe pneumonia which was detected on CAT scan. He was started on intravenous antibiotics and Tamiflu following which his respiratory symptoms had improved. His sputum culture did not show any growth. At the time of discharge, he was breathing well on room air. He was given prescriptions for antibiotics and Tamiflu, and he was okay to be discharged home. During hospital admission, he complained of intermittent right lower quadrant abdominal pain, which was positional and was thought to be related to musculoskeletal. However, considering his multiple episodes, ultrasound of abdomen was taken which did not detect any nephrolithiasis or any other significant findings, though it was limited. The patient's abdominal pain at the time of discharge was well controlled, and so he was discharged without any intervention. More than 30 minutes were spent in discharging this patient. All of his questions have been answered satisfactorily. cc: Vitaliy Godwin MD
== END 2018-10-05 12:28 | disposition home or self-care (01) | DRG 871 ==
LOC: SUPCPDRO → ED 16:11 → 3N 22:56
PROVIDERS: ATTEND Internal Medicine
CPT/HCPCS: 70450; 71010; 71045; 71250; 76700; 80048; 80053; 80196; 80307; 80324; 80329; 81001; 82003; 82009; 82550; 82805; 83605; 83735; 83880; 84484; 85025; 85610; 87040; 87070; 87205; 87449; 87899; 93005; 94640; 94761; 96365; 96367; 96375; 99285; A9270; C9113; G0480; G6038; G6039; J0456; J0692; J0696; J1650; J2020; J2270; J2405; J3370; J7030; J7040; S0164